=== PATIENT | female | born 1955 | race Caucasian/White ===

== ENCOUNTER 2018-05-28 11:40 | Emergency (ER) | payer MEDICAID ==
[~2018-05-28] VITALS: Ht 165.1 cm; Wt 90.9 kg
[2018-05-28 11:45] VITALS: Ht 165.1 cm; Wt 90.9 kg
[2018-05-28] MEDS ORDERED: NEURONTIN 300300 MG PO (11:46)
[2018-05-28] MEDS ORDERED: BUSPAR10 MG PO (11:46)
[2018-05-28] MEDS ORDERED: CARDURA2 MG PO (11:47)
[2018-05-28] MEDS ORDERED: LOPRESSOR25 MG PO (11:47)
[2018-05-28] MEDS ORDERED: HYDRALAZINE HCL25 MG PO (11:47)
[2018-05-28 12:33] LABS: BASOPHILS 0.3 % (0-2); EOSINOPHILS 1.7 % (0-7); HEMATOCRIT 30.9 % (36.0-48.0); HEMOGLOBIN 10.5 g/dL (12-16); IMMATURE GRANULOCYTES 0.6 % (0-5); LYMPHOCYTES 27.5 % (15-50); MCH 29.3 pg (26.0-34.0); MCV 86.3 fL (80.0-100.0); MONOCYTES 9.8 % (2-11); NEUTROPHILS 60.1 % (40-80); PLATELET COUNT 174 10x3/uL (130-400); RBC 3.58 10x6/uL (4.00-5.40); RDW 13.6 % (11.5-14.5); WBC 3.5 10x3/uL (4.8-10.8)
[2018-05-28 12:43] LABS: ALBUMIN 3.4 g/dL (3.4-5.0); ANION GAP 16.2 mmol/L (8-16); BILIRUBIN - TOTAL 0.28 mg/dL (0.2-1.3); CALCIUM 8.8 mg/dL (8.5-10.1); CREATININE - SERUM 2.7 mg/dL (0.6-1.3); POTASSIUM - SERUM 4.2 mmol/L (3.5-5.1); PROTEIN - SERUM 8.4 g/dL (6.4-8.2)
[2018-05-28 15:47] LABS: APPEARANCE HAZY (CLEAR); BILIRUBIN NEGATIVE (NEGATIVE); COLOR YELLOW (YELLOW); EPITHELIAL CELLS 0-5 /hpf (0-5); GLUCOSE NEGATIVE (NEGATIVE); KETONE NEGATIVE (NEGATIVE); NITRITE NEGATIVE (NEGATIVE); PROTEIN 2+ mg/dL (NEGATIVE); RED CELLS - URINE NONE SEEN /hpf (0-5); UROBILINOGEN NORMAL (NORMAL); WHITE CELLS - URINE NSEEN /hpf (0-5)
[2018-05-28] MEDS ORDERED: OMNICEF300 MG PO (16:36)
[2018-05-28 17:10] VITALS: BP 144/63
== END 2018-05-28 17:04 | disposition home or self-care (01) ==
LOC: D.ER 11:40
PROVIDERS: Emergency Medicine
DX: R42 Dizziness and giddiness (principal); J01.90 Acute sinusitis, unspecified; I12.9 Hypertensive chronic kidney disease with stage 1 through stage 4 chronic kidney disease, or unspecified chronic kidney disease; N18.9 Chronic kidney disease, unspecified; R53.1 Weakness; R55 Syncope and collapse; J44.9 Chronic obstructive pulmonary disease, unspecified; R00.1 Bradycardia, unspecified

== ENCOUNTER → 2019-12-01 07:27 | Outpatient (CLI) | payer MEDICAID ==
[2018-05-28 11:45] VITALS: BMI 33.3
[~2019-12-01 07:27] MED LIST: BUSPAR10 MG PO; CARDURA2 MG PO; HYDRALAZINE HCL25 MG PO; LOPRESSOR25 MG PO; NEURONTIN 300300 MG PO; OMNICEF300 MG PO
== END | disposition home or self-care (01) ==
LOC: D.US 07:27
PROVIDERS: ATTEND Nurse Practitioner Family
DX: N18.4 Chronic kidney disease, stage 4 (severe) (principal); Z68.36 Body mass index [BMI] 36.0-36.9, adult